=== PATIENT | female | born 1960 | race Caucasian/White ===

== ENCOUNTER → 2016-06-22 | Outpatient (CLI) | payer BC ==
[~2016-06-22] MED LIST: ASPI81TA21 PO; BACL10TA PO; CALCTAB7 PO; DIAZ5TAB PO; FLAX12003 PO; GLGKIT INJ; HMLI SC; HYDR4TAB2 PO; MELA5CAP PO; MISCCAP80 PO; OXYC-106 PO; RST15; TOPI50TA24 PO
[2016-06-22 13:15] LABS: ALT/SGPT 51 U/L (12-78); BLOOD UREA NITROGEN 17 mg/dl (7-18); BUN/CREATININE RATIO 18.6 (10-20); CALCIUM 9.6 mg/dl (8.5-10.1); CARBON DIOXIDE 25 mmol/L (21-32); CHLORIDE 102 mmol/L (98-107); CHOLESTEROL 215 mg/dl (0-200); CREATININE 0.91 mg/dl (0.60-1.20); GLUCOSE 151 mg/dl (70-99); POTASSIUM 4.3 mmol/L (3.5-5.1); SODIUM 137 mmol/L (136-145); TRIGLYCERIDES 88 mg/dl (0-150); VERY LOW DENSITY LIPOPROT CALC 18 mg/dl
[2016-06-22 13:18] LABS: ESTIMATED AVERAGE GLUCOSE 146 mg/dl; HA1C FLAG Normal (Normal)
[2016-06-22 13:25] LABS: ALB/GLOB RATIO 1.4 (0.9-2); ALKALINE PHOSPHATASE 46 U/L (45-117); AST/SGOT 28 U/L (15-37); CHOLESTEROL/HDL RATIO 2.3; HDL CHOLESTEROL 95 mg/dl; LDL CHOLESTEROL CALCULATED 102 mg/dl
[2016-06-22 13:49] LABS: RATIO 15.1 mcg/mg (0-30.0)
== END | disposition home or self-care (01) ==
LOC: C.LAB1850 10:22
PROVIDERS: ATTEND Nurse Practitioner Adult Health
DX: E10.649 Type 1 diabetes mellitus with hypoglycemia without coma (principal); E78.5 Hyperlipidemia, unspecified; M79.1 Myalgia

== ENCOUNTER → 2016-06-23 | Outpatient (CLI) | payer BC ==
--- NOTE | 2016-06-23 15:36 | MAMMOGRAPHY REPORT ---
BILATERAL DIGITAL SCREENING MAMMOGRAM TOMOSYNTHESIS WITH CAD: 06/23/2016 CLINICAL HISTORY: Routine screening. Patient has no complaints. TECHNIQUE: Breast tomosynthesis in addition to standard 2D mammography was performed. Current study was also evaluated with a Computer Aided Detection (CAD) system. COMPARISON: Comparison is made to exam dated: 05/31/2013 mammogram - [facility]. BREAST COMPOSITION: The tissue of both breasts is extremely dense, which lowers the sensitivity of mammography. FINDINGS: No suspicious masses, calcifications, or areas of architectural distortion are noted in e ither breast. There has been no significant interval change compared to prior exams. IMPRESSION: ACR BI-RADS CATEGORY 1: NEGATIVE There is no mammographic evidence of malignancy. A 1 year screening mammogram is recommended. The p atient will receive written notification of the results. Approximately 10% of breast cancers are not detected with mammography. A negative mammographic repor t should not delay biopsy if a clinically suggestive mass is present. Stephany Jay M.D. ah/:06/23/2016 14:59:10 [employer] Checker: Alisa OROZCO,R, M, [facility] letter sent: Normal 1/2 BI-RADS Code: ACR BI-RADS Category 1: Negative
== END | disposition home or self-care (01) ==
LOC: C.MAMM 09:52
PROVIDERS: ATTEND Obstetrics & Gynecology
DX: Z12.31 Encounter for screening mammogram for malignant neoplasm of breast (principal)

== ENCOUNTER → 2016-07-25 | Outpatient (CLI) | payer BC ==
[2016-07-26 06:28] LABS: ESTIMATED AVERAGE GLUCOSE 160 mg/dl; HA1C FLAG Normal (Normal)
== END | disposition home or self-care (01) ==
LOC: C.LAB1850 14:50
PROVIDERS: ATTEND Nurse Practitioner Adult Health
DX: E10.9 Type 1 diabetes mellitus without complications (principal)

== ENCOUNTER → 2016-10-24 | Outpatient (CLI) | payer BC ==
[~2016-10-24] MED LIST changes: -DIAZ5TAB PO
[2016-10-24 12:43] LABS: ESTIMATED AVERAGE GLUCOSE 154 mg/dl; HA1C FLAG Normal (Normal)
== END | disposition home or self-care (01) ==
LOC: C.LAB1850 10:02
PROVIDERS: ATTEND Nurse Practitioner Adult Health
DX: E10.9 Type 1 diabetes mellitus without complications (principal)

== ENCOUNTER → 2017-01-24 | Outpatient (CLI) | payer BC | END | disposition home or self-care (01) | LOC: C.LAB1850 11:33 | PROVIDERS: ATTEND Nurse Practitioner Adult Health | DX: E10.649 Type 1 diabetes mellitus with hypoglycemia without coma (principal); Z51.81 Encounter for therapeutic drug level monitoring; Z79.4 Long term (current) use of insulin; Z68.1 Body mass index [BMI] 19.9 or less, adult ==

== ENCOUNTER → 2017-04-26 | Outpatient (CLI) | payer BC ==
[~2017-04-26] MED LIST changes: +ASPI-319 PO; -ASPI81TA21 PO; +CALC-393 PO; +CHOL20007 PO; +INSU100I23 SC; +LPT10; +LPT10 PO; +NVLGI/PEN SC; -OXYC-106 PO; +OXYC-594 PO; +OXYC-643 PO; -RST15; +RST15 PO; +TOPI25TA99 PO; +TPM100 PO
[2017-04-26 12:24] LABS: HEMOGLOBIN A1C 6.9 % (4.5-5.6)
== END | disposition home or self-care (01) ==
LOC: C.LAB1850 10:41
PROVIDERS: ATTEND Nurse Practitioner Adult Health
DX: E78.5 Hyperlipidemia, unspecified (principal); E10.9 Type 1 diabetes mellitus without complications; R63.4 Abnormal weight loss

== ENCOUNTER 2017-07-04 14:35 | Emergency (ER) | payer BC ==
[~2017-07-04] VITALS: Ht 160 cm; Wt 42.9 kg
[~2017-07-04 14:35] MED LIST changes: -ASPI-319 PO; +ASPI81TA21 PO; -CALC-393 PO; -CHOL20007 PO; -FLAX12003 PO; -GLGKIT INJ; -HYDR4TAB2 PO; -INSU100I23 SC; -LPT10; -LPT10 PO; -MELA5CAP PO; -NVLGI/PEN SC; +OXYC-106 PO; -OXYC-594 PO; -OXYC-643 PO; -TOPI25TA99 PO; -TPM100 PO
[2017-07-04 14:45] VITALS: TEMP 36.7; Ht 160 cm; Wt 42.9 kg
[2017-07-04] MEDS ORDERED: LIDOCAINE HCL 2% VISC SOLN 20 ML UDC PO STA (15:02)
[2017-07-04] MEDS ORDERED: ALUMINUM/MAGNESIUM SUSP 30 ML UDC PO STA (15:02)
[2017-07-04 15:24] LABS: BASO % 0.5 %; BASO ABS # 0.03 K/uL (0-0.2); EOS % 0.8 %; EOS ABS # 0.05 K/uL (0-0.5); IG# 0.01 K/uL (0.00-0.02); LYMPH % 42.7 %; LYMPH ABS # 2.58 K/uL (1.2-3.4); MEAN CELL VOLUME 91.1 fL (80-100); MEAN CORPUSCULAR HEMOGLOBIN 32.5 pg (25-34); MEAN CORPUSCULAR HGB CONC 35.7 g/dl (32-36); MEAN PLATELET VOLUME 9.7 fL (7.4-10.4); MONO % 6.5 %; MONO ABS # 0.39 K/uL (0.11-0.59); NEUT % 49.3 %; NEUT ABS # 2.98 K/uL (1.4-6.5); PLATELET COUNT 238 K/uL (130-400); RED CELL DISTRIBUTION WIDTH CV 13.4 % (11.5-14.5); RED CELL DISTRIBUTION WIDTH SD 44.3 fL (36.4-46.3); WHITE BLOOD COUNT 6.04 K/uL (4.8-10.8)
[2017-07-04] MEDS ORDERED: NVLGI/PEN SC (15:28)
[2017-07-04] MEDS ORDERED: TPM100 PO (15:28)
[2017-07-04] MEDS ORDERED: INSU100I23 SC (15:28)
[2017-07-04] MEDS ORDERED: OXYC-643 PO (15:28)
[2017-07-04] MEDS ORDERED: LPT10 PO (15:28)
[2017-07-04] MEDS ORDERED: CALC-393 PO (15:30)
[2017-07-04] MEDS ORDERED: CHOL20007 PO (15:32)
[2017-07-04 15:38] LABS: PTT PATIENT 24.3 SECONDS (21.0-31.0)
--- NOTE | 2017-07-04 15:42 | DIAGNOSTIC IMAGING REPORT ---
TWO VIEW CHEST CLINICAL HISTORY: Atypical chest pain.. FINDINGS: PA and lateral chest radiographs are compared to study dated 06/10/2014 and correlated with chest CT dated 04/09/2006. The cardiomediastinal silhouette is unremarkable. Findings suggest emphysematous change. No airspace consolidation or pleural effusion is identified. There is no pneumothorax. The bony thorax appears intact. IMPRESSION: No acute cardiopulmonary abnormality. Electronically signed by: Giorgio Don M.D. 07/04/2017 3:41 PM Dictated Date/Time: 07/04/2017 3:39 PM
[2017-07-04 15:43] LABS: CALCIUM 9.3 mg/dl (8.5-10.1); CREATININE 0.88 mg/dl (0.60-1.20); POTASSIUM 3.5 mmol/L (3.5-5.1)
[2017-07-04] MEDS ORDERED: FAMOTIDINE 20 MG TAB PO ONE (15:45)
[2017-07-04] MEDS ORDERED: KETOROLAC TROMETHAMINE 30 MG/ML VIAL IV STA (16:40)
[2017-07-04 17:17] VITALS: BP 105/66; PULSE 91; O2SAT 98
[2017-07-04] MEDS ORDERED: MELA5CAP PO (18:32)
[2017-07-04] MEDS ORDERED: HYDR4TAB2 PO (18:32)
[2017-07-04] MEDS ORDERED: GLGKIT INJ (18:32)
--- NOTE | 2017-07-04 20:07 | EMERGENCY ROOM VISIT NOTE ---
History Report prepared by Dwaine: Felix Amin Under the Supervision of: Dr. Lyle Campo M.D. First contact with patient: 14:51 Chief Complaint: CHEST PAIN Stated Complaint: CHEST PAIN Nursing Triage Summary: pt has had chest pain for 1 month pain got better for past 2 weeks then pain returned and became severe yesterday am this am pain increased in sensation pt reports feels like "gas, but not indigestion" saw pcp and referred to see motion graphics artist, but pain is worse pt is diaphoretic denies nausea History of Present Illness The patient is a 56 year old female with a history of diabetes who presents to the Emergency Room with complaints of intermittent chest pain that started a month ago. She states that she had really bad pain 2 weeks ago, but then the pain got better for a while, and then the pain then worsened this morning and has been constant since 0600 today. The patient notes that occasionally she has been getting sharp pain, but most of the time it just feels like there is gas in her chest. She says that she does not feel any pressure or burning, and it does not feel like someone is sitting on her chest. The patient currently rates her pain as a 7 out of 10 in severity. She notes that she was seen at her primary care physician's office last week, and had an EKG done. The patient told her doctor that her fingers have been swollen recently, but was just told to decrease her salt intake. She adds that she was started on Statin last week. The patient says that recently she has been getting lightheaded when getting up from laying down or from a sitting position. She says that she is "always cold" , and does break out into sweats occasionally, but she is not sure if it is correlated with her chest pain. The patient denies any shortness of breath, nausea, fevers, cold symptoms, cough, leg swelling, or leg pain. She adds that she has not been on any long trips recently, and has not history of blood clots. The patient states that she has no history of hypertension. She says that she has an appointment scheduled at Dr. Diaz's office (cardiology) on the 28 of July. She says that she has no family history of heart disease. She is a non-smoker. Source of History: patient Onset: A month ago Position: chest Symptom Intensity: 7/10 currently Quality: sharp (sometimes), other (gas in chest) Timing: intermittent Associated Symptoms: No fevers, No cough (or cold symptoms), No SOB, No nausea Note: Associated symptoms: Lightheaded when changing position recently. Denies leg swelling or leg pain. Review of Systems See HPI for pertinent positives & negatives. A total of 10 systems reviewed and were otherwise negative. Past Medical & Surgical Medical Problems: (1) Diabetes (2) Migraine headache Surgical Problems: (1) H/O carpal tunnel repair (2) H/O section (3) H/O repair of rotator cuff (4) H/O: hysterectomy (5) Hx of tonsillectomy Family History Hypertension Social History Smoking Status: Never Smoker Alcohol Use: none Drug Use: none Marital Status: Housing Status: lives with family Occupation Status: employed Current/Historical Medications Scheduled Atorvastatin (Lipitor), 10 MG PO HS Calcium Carbonate (Calcium), 600 MG PO DAILY Flaxseed (Linseed) (Flaxseed Oil), 1,300 MG PO BID Insulin Aspart (Novolog Flexpen), 15-25 UNITS SC UD Insulin Glargine (Basaglar Kwikpen), 11 UNITS SC DAILY Melatonin (Melatonin), 5 MG PO HS Temazepam (Temazepam), 15 MG PO HS Topiramate (Topiramate), 100 MG PO HS Scheduled PRN Glucagon (Glucagon Emergency Kit), 1 MG INJ UD PRN for HYPOGLYCEMIA PROTOCOL Hydromorphone Hcl (Dilaudid), 4 MG PO BID PRN for Pain Oxycodone/Acetaminophen 5MG/325MG (Oxycodone/Acetaminophen 5MG/325MG), 0.5-1 TABLET PO BID PRN for Pain Miscellaneous Medications Cholecalciferol (Vitamin D3), 1 CAP PO Allergies Coded Allergies: No Known Allergies (Unverified , 07/12/16) Physical Exam Vital Signs Date Time Temp Pulse Resp B/P (MAP) Pulse Ox O2 Delivery O2 Flow Rate FiO2 07/04/17 17:17 91 16 105/66 98 07/04/17 16:45 92 16 99 Room Air 07/04/17 16:30 90 07/04/17 14:45 36.7 105 20 133/78 100 Room Air Physical Exam Constitutional: Vital signs reviewed. Eyes: Pupils are equal round reactive to light. Conjunctiva are noninjected. ENT: Pharynx is clear without erythema or exudate. Mucous membranes are moist. Neck supple without meningeal signs. Respiratory: Clear to auscultation bilaterally. Breath sounds are equal bilaterally. Cardiovascular: Regular rate and rhythm. No rubs or gallops. GI: Soft, nondistended and nontender. Bowel sounds are present. Musculoskeletal: No peripheral edema. No lower extremity tenderness. Integumentary: No cyanosis. Neurological: The patient is awake and alert. No focal deficits. Psychiatric: Slightly anxious appearing. Medical Decision & Procedures ER Provider Diagnostic Interpretation: X-ray results as stated below per interpretation by me and the radiologist: TWO VIEW CHEST CLINICAL HISTORY: Atypical chest pain.. FINDINGS: PA and lateral chest radiographs are compared to study dated 06/10/2014 and correlated with chest CT dated 04/09/2006. The cardiomediastinal silhouette is unremarkable. Findings suggest emphysematous change. No airspace consolidation or pleural effusion is identified. There is no pneumothorax. The bony thorax appears intact. IMPRESSION: No acute cardiopulmonary abnormality. Electronically signed by: Giorgio Don M.D. 07/04/2017 3:41 PM Dictated Date/Time: 07/04/2017 3:39 PM Laboratory Results 07/04/17 15:15 Red Blood Count 4.61, Mean Corpuscular Volume 91.1, Mean Corpuscular Hemoglobin 32.5, Mean Corpuscular Hemoglobin Concent 35.7, Mean Platelet Volume 9.7, Neutrophils (%) (Auto) 49.3, Lymphocytes (%) (Auto) 42.7, Monocytes (%) (Auto) 6.5, Eosinophils (%) (Auto) 0.8, Basophils (%) (Auto) 0.5, Neutrophils # (Auto) 2.98, Lymphocytes # (Auto) 2.58, Monocytes # (Auto) 0.39, Eosinophils # (Auto) 0.05, Basophils # (Auto) 0.03 07/04/17 15:15 Test 07/04/17 15:15 07/04/17 16:58 White Blood Count 6.04 K/uL (4.8-10.8) Red Blood Count 4.61 M/uL (4.2-5.4) Hemoglobin 15.0 g/dL (12.0-16.0) Hematocrit 42.0 % (37-47) Mean Corpuscular Volume 91.1 fL (80-100) Mean Corpuscular Hemoglobin 32.5 pg (25-34) Mean Corpuscular Hemoglobin Concent 35.7 g/dl (32-36) Platelet Count 238 K/uL (130-400) Mean Platelet Volume 9.7 fL (7.4-10.4) Neutrophils (%) (Auto) 49.3 % Lymphocytes (%) (Auto) 42.7 % Monocytes (%) (Auto) 6.5 % Eosinophils (%) (Auto) 0.8 % Basophils (%) (Auto) 0.5 % Neutrophils # (Auto) 2.98 K/uL (1.4-6.5) Lymphocytes # (Auto) 2.58 K/uL (1.2-3.4) Monocytes # (Auto) 0.39 K/uL (0.11-0.59) Eosinophils # (Auto) 0.05 K/uL (0-0.5) Basophils # (Auto) 0.03 K/uL (0-0.2) RDW Standard Deviation 44.3 fL (36.4-46.3) RDW Coefficient of Variation 13.4 % (11.5-14.5) Immature Granulocyte % (Auto) 0.2 % Immature Granulocyte # (Auto) 0.01 K/uL (0.00-0.02) Prothrombin Time 10.6 SECONDS (9.0-12.0) Prothromb Time International Ratio 1.0 (0.9-1.1) Activated Partial Thromboplast Time 24.3 SECONDS (21.0-31.0) Partial Thromboplastin Ratio 0.9 D-Dimer 200 ug/L FEU (0-500) Anion Gap 7.0 mmol/L (3-11) Est Creatinine Clear Calc Drug Dose 48.3 ml/min Estimated GFR () 85.1 Estimated GFR (Non- 73.4 BUN/Creatinine Ratio 11.9 (10-20) Calcium Level 9.3 mg/dl (8.5-10.1) Bedside Troponin I < 0.030 ng/ml (0-0.045) Laboratory results as reviewed by me. Medications Administered Medications (Trade) Dose Ordered Sig/Neela Route Start Time Stop Time Status Last Admin Dose Admin Lidocaine HCl (Viscous Lidocaine 2% Soln) 10 ml NOW STAT PO 3/13/18 15:02 07/04/17 15:03 DC 07/04/17 15:18 10 ML Al Hydroxide/Mg Hydroxide (Maalox Susp) 30 ml NOW STAT PO 07/04/17 15:02 07/04/17 15:03 DC 07/04/17 15:18 30 ML Famotidine (Pepcid Tab) 20 mg NOW ONCE PO 07/04/17 15:45 07/04/17 15:46 DC 07/04/17 16:12 20 MG Ketorolac Tromethamine (Toradol Inj) 10 mg NOW STAT IV 07/04/17 16:40 07/04/17 16:41 DC 07/04/17 16:53 10 MG ECG Per My Interpretation Indication: chest pain Rate (beats per minute): 98 Rhythm: normal sinus Findings: Q waves (V1 and V2), ST depression (slight in V4-V6), no ectopy Change: no significant change (from May 2014) Change: Second ECG: Normal sinus rhythm with a rate of 94 bpm, Q-waves septally, nonspecific ST changes laterally. No change from prior ECG. ED Course 1452: The patient was evaluated in room C8. A complete history and physical exam was performed. 1502: Maalox Susp 30 ml PO, Viscous Lidocaine 2% Soln 10 ml PO. 1540: I reevaluated the patient and her chest pain is much better after the GI Cocktail. 1545: Pepcid Tab 20 mg PO. 1630: Upon reevaluation, the patient states that she noticed that the pain is sometimes worse when moving around. She also has reproducible tenderness to palpation. The patient's second troponin will be drawn in 10 minutes, and if that is negative, she will be discharged. I discussed today's test results with her. She verbalized agreement of the treatment plan. 1640: Toradol Inj 10 mg IV. 1702: I reevaluated the patient and her second troponin is 0. She says that the Toradol helped "tremendously", and it helped much better than the GI Cocktail. She will be discharged. Medical Decision This is a 56-year-old female who presents with chest discomfort. Differential diagnosis includes pleurisy, GERD, pulmonary embolism, unstable angina, SD, esophagitis. I did perform a limited focused review of portions of the patient' s old chart on the electronic medical record. The patient has had no recent pertinent visits to this hospital. I did evaluate the patient as noted above. The patient is presenting with very atypical chest pain which has been going on for about a month. She does not relate any significant associated factors or any association with exertion. She has seen her doctor about this last week and was referred to cardiology. IV access was established. The patient was placed on a continuous cardiac sonographer. I did treat her with a GI cocktail. She did have improvement of her chest pain. I did order and personally review the patient's 12-lead EKG and chest x-ray as described above. I did order and review the patient's blood work as noted in the electronic medical record. Troponin and d-dimer are negative. She has a heart score of 3. A second troponin was obtained and was negative. She was treated with Toradol 10 mg IV as she stated that her pain seems to be worse with movement and palpation. On reassessment the patient states that the Toradol helped tremendously and that she was feeling much better. I did discuss the limitations of the workup done here in the emergency department and recommended very close follow-up with her doctor as well as recommended keeping her appointment with her motion graphics artist. She was discharged in good condition and given return instructions as outlined below. Medication Reconcilliation Current Medication List: was personally reviewed by me Blood Pressure Screening Patient's blood pressure: Elevated blood pressure Impression Primary Impression: Acute chest pain Scribe Attestation The scribe's documentation has been prepared under my direct and personally reviewed by me in its entirety. I confirm that the note above accurately reflects all work, treatment, procedures, and medical decision making performed by me. Departure Information Dispostion Home / Self-Care Referrals Huang James MD (PCP) Patient Instructions ED Chest Pain Atypical Unkn Cause, My [facility] Additional Instructions You have been examined and treated today on an emergency basis only. This is not a substitute for, or an effort to provide, complete comprehensive medical care. It is impossible to recognize and treat all injuries or illnesses in a single emergency department visit. It is therefore important that you follow up closely with your physician. Call as soon as possible for an appointment. Keep your appointment with your motion graphics artist as well. Return for worsening symptoms or if you develop shortness of breath, profuse sweating, lightheadedness, feeling like there is a weight on her chest or any other concerning symptoms.
[2017-07-04] MEDS ORDERED: FLAX12003 PO (20:57)
== END 2017-07-04 17:18 | disposition home or self-care (01) ==
LOC: C.EDB 14:37 → C.EDC 17:18
DX: R07.9 Chest pain, unspecified (principal); E11.9 Type 2 diabetes mellitus without complications; G43.909 Migraine, unspecified, not intractable, without status migrainosus; Z82.49 Family history of ischemic heart disease and other diseases of the circulatory system; Z79.4 Long term (current) use of insulin; Z79.899 Other long term (current) drug therapy

== ENCOUNTER → 2017-07-28 | Outpatient (CLI) | payer BC ==
[~2017-07-28] MED LIST changes: -ASPI81TA21 PO; -BACL10TA PO; +CALC-393 PO; -CALCTAB7 PO; +CHOL20007 PO; +FLAX12003 PO; +GLGKIT INJ; -HMLI SC; +HYDR4TAB2 PO; +INSU100I23 SC; +LPT10; +LPT10 PO; +MELA5CAP PO; -MISCCAP80 PO; +NVLGI/PEN SC; -OXYC-106 PO; +OXYC-643 PO; -TOPI50TA24 PO; +TPM100 PO
[2017-07-28 10:06] LABS: HEMOGLOBIN A1C 6.9 % (4.5-5.6)
== END | disposition home or self-care (01) ==
LOC: C.LAB1850 07:35
PROVIDERS: ATTEND Nurse Practitioner Adult Health
DX: E78.5 Hyperlipidemia, unspecified (principal); E10.49 Type 1 diabetes mellitus with other diabetic neurological complication